=== PATIENT | male | born 1975 | race African-American/Black ===

== ENCOUNTER 2016-07-29 06:01 | Emergency (ER) | payer SELFPAY ==
[~2016-07-29] VITALS: Ht 170.2 cm; Wt 100.0 kg
[2016-07-29 06:05] VITALS: Ht 170.2 cm; Wt 100.0 kg
[2016-07-29] MEDS ORDERED: SOD CHLORIDE 0.9% 1,000 ML IV STA (06:16)
[2016-07-29] MEDS ORDERED: LORAZEPAM 2 MG INJ IV ONE (06:30)
[2016-07-29 06:54] LABS: ADD SCAN DIFF NO
[2016-07-29 07:02] LABS: BASOPHILS % 0.2 % (0.0-2.0); EOSINOPHILS % 0.2 % (0.0-7.0); HEMATOCRIT 46.4 % (42.0-52.0); HEMOGLOBIN 16.1 g/dl (14.0-18.0); LYMPHOCYTES # 1.6 10^3/ul (0.8-2.9); LYMPHOCYTES % 20.1 % (15.0-51.0); MEAN CORPUSCULAR HEMOGLOBIN 32.1 pg (29.0-33.0); MEAN CORPUSCULAR HGB CONC 34.7 g/dl (32.0-37.0); MEAN CORPUSCULAR VOLUME 92.6 fl (82.0-101.0); MEAN PLATELET VOLUME 10.3 fl (7.4-10.4); NEUTROPHIL # 5.5 10^3/ul (1.6-7.5); NEUTROPHILS % 67.3 % (39.0-77.0); PLATELET COUNT 267 10^3/UL (140-415); RED BLOOD COUNT 5.01 10^6/ul (4.70-6.10); RED CELL DISTRIBUTION WIDTH 12.5 % (11.5-14.5); WHITE BLOOD COUNT 8.2 10^3/ul (4.8-10.8)
--- NOTE | 2016-07-29 07:09 | RADRPT ---
PROCEDURE: CHEST - 1 VIEW CLINICAL INDICATION: 41-year-old male with chest/abdominal pain. TECHNIQUE: A single frontal AP semi-erect view of the chest was performed portably. The images we re reviewed on a PACS workstation. COMPARISON: None. FINDINGS: The cardiomediastinal silhouette has a normal appearance. There is no evidence for an infiltrate. There is no evidence for congestive heart failure. There is no evidence for pneumothorax. The osseou s structures are intact. IMPRESSION: No evidence for active cardiopulmonary disease. .Abhi Warren MD, MD Date Time Electronically viewed and signed by .Abhi Warren MD, on 07/29/2016 07:08 .Immanuel/
[2016-07-29 07:32] LABS: ALBUMIN 4.4 g/dl (3.3-4.9); ALBUMIN/GLOBULIN RATIO 1.41; CALCIUM 9.7 mg/dl (8.4-10.2); CREATININE 1.05 mg/dl (0.61-1.24); POTASSIUM 3.8 mmol/L (3.5-5.1); TOTAL PROTEIN 7.5 g/dl (6.1-8.1); TROPONIN-I 0.027 ng/ml (0.00-0.12)
--- NOTE | 2016-07-29 08:39 | ERD ---
ER Documentation Chief Complaint Date/Time DATE: 07/29/16 TIME: 08:31 Chief Complaint used meth tonight, doesnt feel very well HPI 41-year-old man with a history of drug abuse brought in by EMS for feeling bad after using methamphetamine. He has been experiencing palpitations and intermittent paranoia shortly after using methamphetamines. He denies history of psychiatric illness denies suicidal homicidal ideation, no chest pain or shortness of breath no headache or blurry vision, no weakness in his arms or legs, no loss of consciousness. Patient denies vomiting or diarrhea. Patient was transported here by EMS without complications. ROS All systems reviewed and are negative except as per history of present illness. PMhx/Soc History of drug abuse including methamphetamines History of Surgery: No Anesthesia Reaction: No Hx Neurological Disorder: No Hx Respiratory Disorders: No Hx Cardiac Disorders: No Hx Psychiatric Problems: No Hx Miscellaneous Medical Probl: No Hx Alcohol Use: Yes (occassionally) Hx Substance Use: Yes (crystal meth) Hx Tobacco Use: Yes Smoking Status: Unknown if ever smoked FmHx Family History: No diabetes Physical Exam Vitals Vital Signs Date Time Temp Pulse Resp B/P Pulse Ox O2 Delivery O2 Flow Rate FiO2 07/29/16 06:05 97.8 111 22 203/95 98 Physical Exam GENERAL: Well-developed, anxious, agitated HEENT: Dry mucous membranes, pink conjunctiva, no cervical spine tenderness or step-off deformities, no goiter, no jaundice or icterus, extraocular movements intact without pain. No submandibular induration, and no pharyngeal erythema NEURO: Alert and oriented 3, cranial nerves II through XII intact bilaterally, pupils equal round reactive to light, no focal deficits or facial asymmetry, sensation intact distally Strength 5/5 in upper and lower extremities bilaterally CARDIAC: Tachycardic and regular, no murmurs rubs or gallops LUNGS: Clear bilaterally no wheezing crackles or stridor ABDOMEN: Soft nontender, no guarding, no rigidity, no rebound, no psoas sign no obturator sign. Normoactive bowel sounds SKIN: Warm and dry to touch, no abrasions, contusions, or hematomas, no lacerations, no ecchymosis, no target lesions, and without ulcers EXTREMITIES: No clubbing cyanosis or edema, calves are bilaterally symmetrical, no Homans sign, no popliteal cord sign. Distal pulses equal and bilateral PSYCH: Anxious and agitated Result Diagram: 07/29/16 0645 07/29/16 0645 Results 24 hrs Laboratory Tests Test 07/29/16 06:45 Alanine Aminotransferase (ALT/SGPT) 79IU/L Albumin 4.4g/dl Albumin/Globulin Ratio 1.41 Alkaline Phosphatase 68IU/L Anion Gap 22 Aspartate Amino Transf (AST/SGOT) 82IU/L Basophils # 0.010^3/ul Basophils % 0.2% Blood Urea Nitrogen 9mg/dl Calcium Level 9.7mg/dl Carbon Dioxide Level 23mmol/L Chloride Level 98mmol/L Creatinine 1.05mg/dl Direct Bilirubin 0.00mg/dl Eosinophils # 0.010^3/ul Eosinophils % 0.2% Globulin 3.10g/dl Glucose Level 115mg/dl Hematocrit 46.4% Hemoglobin 16.1g/dl Indirect Bilirubin 1.0mg/dl Lipase 107U/L Lymphocytes # 1.610^3/ul Lymphocytes % 20.1% Mean Corpuscular Hemoglobin 32.1pg Mean Corpuscular Hemoglobin Concent 34.7g/dl Mean Corpuscular Volume 92.6fl Mean Platelet Volume 10.3fl Monocytes # 1.010^3/ul Monocytes % 12.0% Neutrophils # 5.510^3/ul Neutrophils % 67.3% Nucleated Red Blood Cells # 0.010^3/ul Nucleated Red Blood Cells % 0.0/100WBC Platelet Count 62861^3/UL Potassium Level 3.8mmol/L Red Blood Count 5.0110^6/ul Red Cell Distribution Width 12.5% Sodium Level 139mmol/L Total Bilirubin 1.0mg/dl Total Protein 7.5g/dl Troponin I 0.027ng/ml White Blood Count 8.210^3/ul Current Medications Medications (Trade) Dose Ordered Sig/Vanessa Route PRN Reason Start Time Stop Time Status Last Admin Dose Admin Lorazepam 1 mg 1 mg ONCE ONCE IV 07/29/16 06:30 07/29/16 06:31 DC 07/29/16 06:41 Sodium Chloride (NS) 1,000 ml @ 1,000 mls/hr Q1H STAT IV 07/29/16 06:16 07/29/16 07:15 DC 07/29/16 06:41 Procedures/MDM IV line was established patient was placed on library monitor rhythm strip revealed a sinus tachycardia at 120 bpm with upright P and T waves. Patient was afebrile. I administered 1 L normal saline intravenously and lorazepam 1 mg IV 1 with good effect. EKG performed, read by me revealed a normal sinus rhythm at 90 bpm, normal axis , narrow QRS complex, no concerning ST elevations or depressions noted. Chest X-ray 1V Interpreted by me: Soft Tissue: No acute abnormalities Bones: No acute abnormalities Mediastinum/Cardiac Silhouette/Lungs: No acute abnormalities CBC and electrolytes were normal, liver function tests revealed mild transaminitis, troponin was negative. Differential diagnoses considered, included but not limited to acute coronary syndrome, pulmonary embolism, aortic dissection, abdominal aortic aneurysm, sepsis, stroke, meningitis, encephalitis, pneumonia, appendicitis, cholecystitis , bowel obstruction, pyelonephritis, nephrolithiasis, cystitis, as well as metabolic, hematologic, and electrolyte abnormalities. As well as abscess, cellulitis, fractures, and dislocations. Patient feels much better at this time, and vital signs are normal, symptoms have improved. I did give strict instructions to return to the ED if symptoms continue or worsen, patient will otherwise follow-up with primary care physician. Patient understood instructions and agreed to plan. Departure Diagnosis: Primary Impression: Methamphetamine abuse Additional Impressions: Drug overdose Encounter type: initial encounter Injury intent: accidental or unintentional Qualified Code: T50.901A - Drug overdose, accidental or unintentional, initial encounter Dehydration Condition: Good Patient Instructions: Understanding Methamphetamine Abuse and Addiction, Drug Abuse MANDI MART MD Jul 29, 2016 08:38
[2016-07-29 08:45] VITALS: BP 162/93; PULSE 94; RESP 20; TEMP 98
== END 2016-07-29 08:45 | disposition home or self-care (01) ==
LOC: E/R 06:01
DX: F15.10 Other stimulant abuse, uncomplicated (principal); E86.0 Dehydration; F17.210 Nicotine dependence, cigarettes, uncomplicated
CPT/HCPCS: 71010; 80053; 83690; 84484; 85025; J2060; J7030; 36415; 93005; 96374